=== PATIENT | male | born 1980 | race Caucasian/White ===

== ENCOUNTER 2021-02-07 08:15 | Observation (INO) | payer BC ==
[2021-02-07] MEDS ORDERED: Sodium Chloride 0.9% 1000 ML 1,000 ML ONE (08:46)
[2021-02-07] MEDS ORDERED: Sodium Chloride 0.9% 1000 ML 1,000 ML IV STA ×2 (08:49→08:55)
[2021-02-07] MEDS ORDERED: Zofran 4 MG/2 ML VIAL IV ONE (08:49)
--- NOTE | 2021-02-07 09:28 | ERPHSYRPT ---
- History of Present Illness Time Seen by Provider: 02/07/21 08:25 Source: patient Exam Limitations: no limitations Patient Subjective Stated Complaint: Pt states that he got up off of the toilet and passed out Triage Nursing Assessment: Pt was brought to the ER by his , hypoxic, oxygen has dropped from 95 initically to 88 since arrival, placed on 2L NC, headache, body aches, diarrhea, loss of taste and smell, pulses normal, diaphoretic, sinus rhythm Physician History: Patient is a 40-year-old male who was diagnosed with Covid on Tuesday he has been experiencing severe headaches body aches severe diarrhea and a decrease in taste and smell as well as cough and shortness of breath. Today he got up and went to the bathroom for a bowel movement and when he stood back up had a syncopal episode. Urine output has decreased. He denies any injury to his head with his syncope. He has had some shortness of breath and does display some hypoxia in the ER. Witnessed: by family Prior Episodes: single episode today Precipitating Factors: lightheadedness Context: standing Loss of Consciousness: brief (seconds) Allergies/Adverse Reactions: No Known Drug Allergies Allergy (Verified 02/07/21 08:51) Home Medications: No Reportable Medications [No Reported Medications] 02/07/21 [History] Travel Risk - International Travel Have you traveled outside of the country in past 3 weeks: No - Coronavirus Screening Symptoms: Fever, Cough: New Onset, Shortness of Breath, Vomiting/Diarrhea, Loss of Taste or Smell, Headaches/Body Aches/Fatigue Close contact with a COVID-19 positive Pt in past 14-21 Days: No - Vaccine Status Have you recieved a Covid-19 vaccination: No - Past Medical History Pertinent Past Medical History: No - Past Surgical History Past Surgical History: Yes Other Surgical History: toe surgery due to accident - Social History Smoking Status: Never smoker Exposure to second hand smoke: No Drug Use: none - Review of Systems Constitutional: Fever, Fatigue, Lethargy, Weakness, Weight Loss Eyes: No Symptoms Respiratory: Cough, Dyspnea, Dyspnea on Exertion (MILLER) Cardiac: No Symptoms Abdominal/Gastrointestinal: Abdominal Pain, Nausea, Vomiting, Diarrhea Musculoskeletal: Arthralgias, Back Pain, Joint Pain, Myalgias Skin: No Symptoms Neurological: Dizziness, Headache Psychological: No Symptoms Endocrine: No Symptoms Hematologic/Lymphatic: No Symptoms Immunological/Allergic: No Symptoms All Other Systems: Reviewed and Negative Physical Exam - Nursing Vital Signs Nursing Vital Signs: Initial Vital Signs Temperature 99.7 F 02/07/21 08:19 Pulse Rate 91 H 02/07/21 08:19 Respiratory Rate 21 02/07/21 08:19 Blood Pressure 146/108 02/07/21 08:19 O2 Sat by Pulse Oximetry 93 L 02/07/21 08:19 Pain Scale Pain Intensity 0 - Weinert Coma Scale Best Eye Response (Rangel): (4) open spontaneously Best Verbal Response (Weinert): (5) oriented Best Motor Response (Rangel): (6) obeys commands Weinert Total: 15 - Physical Exam General Appearance: no apparent distress, alert Eye Exam: bilateral eye: PERRL, EOMI Ears, Nose, Throat Exam: normal ENT inspection, pharynx normal, moist mucous membranes Neck Exam: normal inspection, non-tender, supple, full range of motion Respiratory: lungs clear, respiratory distress (Mild), diminished breath sounds, crackles/rales, No chest tenderness Cardiovascular: regular rate/rhythm, capillary refill <2 sec, No murmur, No pulse deficit Gastrointestinal: soft, normal bowel sounds, tenderness, No distention, No mass Back Exam: normal inspection, normal range of motion, No CVA tenderness, No vertebral tenderness Extremity Exam: normal inspection, normal range of motion, pelvis stable, No tenderness Mental Status: alert, oriented x 3, cooperative corrections corporal Exam: normal speech, PERRL, No facial droop Coordination/Gait: normal finger to nose Motor/Sensory: no motor deficit, no sensory deficit, no pronator drift Skin Exam: normal color, warm, dry, No rash SpO2: 93 - Course Nursing assessment & vital signs reviewed: Yes EKG Interpreted by Me: RATE (96), Sinus Rhythm, NORMAL AXIS, NORMAL INTERVALS, NORMAL QRS, Non-specific ST Changes - Radiology Exams Chest X-ray Interpretation: Interpreted by me, Other (Questionable faint infiltrate left lower lobe) Ordered Tests: Active Orders 24 hr Category Date Time 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 Care 02/07/21 08:53 Active EKG-ER Only STAT Care 02/07/21 08:49 Active IV Insertion STAT Care 02/07/21 08:49 Active Oxygen-ED Only Nasal Cannula 2 lpm Care 02/07/21 08:49 Active CHEST 1 VIEW (PORTABLE) Stat Exams 02/07/21 08:53 Taken CBC W DIFF Stat Lab 02/07/21 10:09 Completed CMP Stat Lab 02/07/21 10:09 Completed CULTURE,URINE Stat Lab 02/07/21 09:00 Received D-DIMER QUANTITATIVE Stat Lab 02/07/21 10:09 Completed INFLUENZA A+B RESHMA Stat Lab 02/07/21 10:09 Completed LDH-LACTATE DEHYDROGENASE Stat Lab 02/07/21 10:09 Completed Lactic Acid Stat Lab 02/07/21 08:49 Completed MAGNESIUM Stat Lab 02/07/21 10:09 Completed PROCALCITONIN Stat Lab 02/07/21 10:09 Completed PROTIME WITH INR Stat Lab 02/07/21 10:09 Completed TROPONIN Q3H Lab 02/07/21 10:09 Completed TROPONIN Q3H Lab 02/07/21 12:00 Ordered TROPONIN Q3H Lab 02/07/21 15:00 Ordered TROPONIN Q3H Lab 02/07/21 18:00 Ordered TROPONIN Q3H Lab 02/07/21 21:00 Ordered UA W/RFX UR CULTURE Stat Lab 02/07/21 09:00 Completed Medication Summary Discontinued Medications Generic Name Dose Route Start Last Admin Trade Name Freq PRN Reason Stop Dose Admin Sodium Chloride Confirm 02/07/21 08:46 Sodium Chloride 0.9% 1000 Ml Administered 02/07/21 08:47 Dose 1,000 mls @ ud .ROUTE .STK-MED ONE Sodium Chloride 1,000 mls @ 999 mls/hr 02/07/21 08:49 02/07/21 10:06 Sodium Chloride 0.9% 1000 Ml IV 02/07/21 09:49 Infused .Q1H1M STA Infusion Sodium Chloride 1,000 mls @ 999 mls/hr 02/07/21 08:55 Sodium Chloride 0.9% 1000 Ml IV 02/07/21 09:55 .Q1H1M STA Ondansetron HCl 4 mg 02/07/21 08:49 Zofran 4 Mg/2 Ml Vial IV 02/07/21 08:50 STAT ONE Lab/Rad Data: Laboratory Result Diagrams 02/07/21 10:09 02/07/21 10:09 Laboratory Results 02/07/21 02/07/21 02/07/21 Range/Units 10:09 10:09 10:09 WBC (4.0-10.5) K/mm3 RBC (4.1-5.6) M/mm3 Hgb (12.5-18.0) gm/dl Hct (42-50) % MCV (78-100) fl MCH (26-32) pg MCHC (32-36) g/dl RDW (11.5-14.0) % Plt Count (150-450) K/mm3 MPV (7.5-11.0) fl Gran % (36.0-66.0) % Eos # (Auto) (0-0.5) Absolute Lymphs (auto) (1.0-4.6) Absolute Monos (auto) (0.0-1.3) Lymphocytes % (24.0-44.0) % Monocytes % (0.0-12.0) % Eosinophils % (0.00-5.0) % Basophils % (0.0-0.4) % Absolute Granulocytes (1.4-6.9) Basophils # (0-0.4) PT 13.4 H (9.4-12.5) SECONDS INR 1.14 (0.8-3.0) D-Dimer 1206 H* (215-500) ng/mL Sodium 135 L (137-145) mmol/L Potassium 4.1 (3.5-5.1) mmol/L Chloride 96 L (98-107) mmol/L Carbon Dioxide 29 (22-30) mmol/L Anion Gap 14.3 (5-15) MEQ/L BUN 10 (9-20) mg/dL Creatinine 1.11 (0.66-1.25) mg/dL Estimated GFR > 60.0 ML/MIN Glucose 132 H (74-106) mg/dL Lactic Acid (0.4-2.0) Calcium 8.6 (8.4-10.2) mg/dL Magnesium 2.2 (1.6-2.3) mg/dL Total Bilirubin 0.20 (0.2-1.3) mg/dL AST 55 (17-59) U/L ALT 52 H (0-50) U/L Alkaline Phosphatase 56 (38-126) U/L Lactate Dehydrogenase 245 (120-246) U/L Troponin I < 0.012 (0.000-0.034) ng/mL Serum Total Protein 7.1 (6.3-8.2) g/dL Albumin 4.0 (3.5-5.0) g/dL Procalcitonin 0.086 H (0.030-0.080) ng/mL Urine Color (YELLOW) Urine Appearance (CLEAR) Urine pH (5-6) Ur Specific Mansfield (1.005-1.025) Urine Protein (Negative) Urine Ketones (NEGATIVE) Urine Blood (0-5) Cristopher/ul Urine Nitrite (NEGATIVE) Urine Bilirubin (NEGATIVE) Urine Urobilinogen (0-1) mg/dL Ur Leukocyte Esterase (NEGATIVE) Urine WBC (Auto) (0-5) /HPF Urine RBC (Auto) (0-2) /HPF U Epithel Cells (Auto) (FEW) /HPF Urine Bacteria (Auto) (NEGATIVE) /HPF Urine Culture Reflexed (NO) Urine Glucose (NEGATIVE) mg/dL Influenza Type A Ag (NEGATIVE) Influenza Type B Ag (NEGATIVE) 02/07/21 02/07/21 02/07/21 Range/Units 10:09 10:09 09:00 WBC 3.6 L (4.0-10.5) K/mm3 RBC 5.48 (4.1-5.6) M/mm3 Hgb 15.7 (12.5-18.0) gm/dl Hct 47.0 (42-50) % MCV 85.8 (78-100) fl MCH 28.6 (26-32) pg MCHC 33.4 (32-36) g/dl RDW 13.1 (11.5-14.0) % Plt Count 89 L (150-450) K/mm3 MPV 10.1 (7.5-11.0) fl Gran % 74.5 H (36.0-66.0) % Eos # (Auto) 0 (0-0.5) Absolute Lymphs (auto) 0.67 L (1.0-4.6) Absolute Monos (auto) 0.24 (0.0-1.3) Lymphocytes % 18.8 L (24.0-44.0) % Monocytes % 6.7 (0.0-12.0) % Eosinophils % 0.0 (0.00-5.0) % Basophils % 0.0 (0.0-0.4) % Absolute Granulocytes 2.66 (1.4-6.9) Basophils # 0 (0-0.4) PT (9.4-12.5) SECONDS INR (0.8-3.0) D-Dimer (215-500) ng/mL Sodium (137-145) mmol/L Potassium (3.5-5.1) mmol/L Chloride (98-107) mmol/L Carbon Dioxide (22-30) mmol/L Anion Gap (5-15) MEQ/L BUN (9-20) mg/dL Creatinine (0.66-1.25) mg/dL Estimated GFR ML/MIN Glucose (74-106) mg/dL Lactic Acid (0.4-2.0) Calcium (8.4-10.2) mg/dL Magnesium (1.6-2.3) mg/dL Total Bilirubin (0.2-1.3) mg/dL AST (17-59) U/L ALT (0-50) U/L Alkaline Phosphatase (38-126) U/L Lactate Dehydrogenase (120-246) U/L Troponin I (0.000-0.034) ng/mL Serum Total Protein (6.3-8.2) g/dL Albumin (3.5-5.0) g/dL Procalcitonin (0.030-0.080) ng/mL Urine Color YELLOW (YELLOW) Urine Appearance SLIGHTLY CLOUDY (CLEAR) Urine pH 6.0 (5-6) Ur Specific Mansfield 1.016 (1.005-1.025) Urine Protein 30 (Negative) Urine Ketones NEGATIVE (NEGATIVE) Urine Blood SMALL (0-5) Cristopher/ul Urine Nitrite NEGATIVE (NEGATIVE) Urine Bilirubin NEGATIVE (NEGATIVE) Urine Urobilinogen NEGATIVE (0-1) mg/dL Ur Leukocyte Esterase NEGATIVE (NEGATIVE) Urine WBC (Auto) 3-5 (0-5) /HPF Urine RBC (Auto) NONE (0-2) /HPF U Epithel Cells (Auto) NONE (FEW) /HPF Urine Bacteria (Auto) NONE (NEGATIVE) /HPF Urine Culture Reflexed YES (NO) Urine Glucose NEGATIVE (NEGATIVE) mg/dL Influenza Type A Ag NEGATIVE (NEGATIVE) Influenza Type B Ag NEGATIVE (NEGATIVE) 02/07/21 Range/Units 08:49 WBC (4.0-10.5) K/mm3 RBC (4.1-5.6) M/mm3 Hgb (12.5-18.0) gm/dl Hct (42-50) % MCV (78-100) fl MCH (26-32) pg MCHC (32-36) g/dl RDW (11.5-14.0) % Plt Count (150-450) K/mm3 MPV (7.5-11.0) fl Gran % (36.0-66.0) % Eos # (Auto) (0-0.5) Absolute Lymphs (auto) (1.0-4.6) Absolute Monos (auto) (0.0-1.3) Lymphocytes % (24.0-44.0) % Monocytes % (0.0-12.0) % Eosinophils % (0.00-5.0) % Basophils % (0.0-0.4) % Absolute Granulocytes (1.4-6.9) Basophils # (0-0.4) PT (9.4-12.5) SECONDS INR (0.8-3.0) D-Dimer (215-500) ng/mL Sodium (137-145) mmol/L Potassium (3.5-5.1) mmol/L Chloride (98-107) mmol/L Carbon Dioxide (22-30) mmol/L Anion Gap (5-15) MEQ/L BUN (9-20) mg/dL Creatinine (0.66-1.25) mg/dL Estimated GFR ML/MIN Glucose (74-106) mg/dL Lactic Acid 1.4 (0.4-2.0) Calcium (8.4-10.2) mg/dL Magnesium (1.6-2.3) mg/dL Total Bilirubin (0.2-1.3) mg/dL AST (17-59) U/L ALT (0-50) U/L Alkaline Phosphatase (38-126) U/L Lactate Dehydrogenase (120-246) U/L Troponin I (0.000-0.034) ng/mL Serum Total Protein (6.3-8.2) g/dL Albumin (3.5-5.0) g/dL Procalcitonin (0.030-0.080) ng/mL Urine Color (YELLOW) Urine Appearance (CLEAR) Urine pH (5-6) Ur Specific Mansfield (1.005-1.025) Urine Protein (Negative) Urine Ketones (NEGATIVE) Urine Blood (0-5) Cristopher/ul Urine Nitrite (NEGATIVE) Urine Bilirubin (NEGATIVE) Urine Urobilinogen (0-1) mg/dL Ur Leukocyte Esterase (NEGATIVE) Urine WBC (Auto) (0-5) /HPF Urine RBC (Auto) (0-2) /HPF U Epithel Cells (Auto) (FEW) /HPF Urine Bacteria (Auto) (NEGATIVE) /HPF Urine Culture Reflexed (NO) Urine Glucose (NEGATIVE) mg/dL Influenza Type A Ag (NEGATIVE) Influenza Type B Ag (NEGATIVE) - Progress Progress: unchanged - Departure Departure Disposition: In-patient Admission Clinical Impression: COVID-19, Dehydration Condition: Fair Critical Care Time: No Referrals: RAFA SAPP [Primary Care Provider] -
[2021-02-07 10:08] LABS: Absolute Neutrophil Ct (ANC) 2.66 (1.4-6.9); Basophil (Absolute #) 0 (0-0.4); Eosinophil (Absolute #) 0 (0-0.5); Hemoglobin 15.7 gm/dl (12.5-18.0); Lymphocyte (Absolute #) 0.67 (1.0-4.6); Lymphocytes % 18.8 % (24.0-44.0); Mean Cell Volume 85.8 fl (78-100); Mean Corpuscular Hemoglobin 28.6 pg (26-32); Mean Corpuscular Hgb Concent. 33.4 g/dl (32-36); Mean Platelet Volume 10.1 fl (7.5-11.0); Monocyte (Absolute #) 0.24 (0.0-1.3); Monocytes % 6.7 % (0.0-12.0); Neutrophil % 74.5 % (36.0-66.0); Platelet Count 89 K/mm3 (150-450); Red Blood Count 5.48 M/mm3 (4.1-5.6); Red Cell Distribution Width 13.1 % (11.5-14.0); White Blood Count 3.6 K/mm3 (4.0-10.5)
[2021-02-07 10:16] LABS: INR 1.14 (0.8-3.0); PROTIME 13.4 SECONDS (9.4-12.5)
[2021-02-07 10:17] LABS: Appearance SLIGHTLY CLOUDY (CLEAR); Bilirubin NEGATIVE (NEGATIVE); Blood SMALL Ery/ul (0-5); Glucose NEGATIVE (NEGATIVE); Ketones NEGATIVE (NEGATIVE); Leukocyte Esterase NEGATIVE (NEGATIVE); Nitrite NEGATIVE (NEGATIVE); Protein,Urine Dip 30 (Negative); Specific Gravity 1.016 (1.005-1.025); Urobilinogen NEGATIVE mg/dL (0-1)
[2021-02-07 10:38] LABS: ALKALINE PHOSPHATASE 56 U/L (38-126); ANION GAP 14.3 MEQ/L (5-15); BLOOD UREA NITROGEN 10 mg/dL (9-20); CHLORIDE 96 mmol/L (98-107); Calcium 8.6 mg/dL (8.4-10.2); Carbon Dioxide 29 mmol/L (22-30); Creatinine 1 1.11 mg/dL (0.66-1.25); EST GLOMERULAR FILTRATION RATE > 60.0 ML/MIN; Glucose 132 mg/dL (74-106); LDH-LACTATE DEHYDROGENASE 245 U/L (120-246); MAGNESIUM 2.2 mg/dL (1.6-2.3); PROCALCITONIN 0.086 ng/mL (0.030-0.080); Potassium 4.1 mmol/L (3.5-5.1); SGOT/AST 55 U/L (17-59); SGPT/ALT 52 U/L (0-50); SODIUM 135 mmol/L (137-145); Total Protein 7.1 g/dL (6.3-8.2)
[2021-02-07 10:42] LABS: INFLUENZA A NEGATIVE (NEGATIVE); INFLUENZA B NEGATIVE (NEGATIVE)
[2021-02-07 13:40] LABS: Slide Review 1 YES
[2021-02-07] MEDS ORDERED: Ativan 1 MG PO PRN (14:49)
[2021-02-07] MEDS ORDERED: TYLENOL 325 MG PO PRN (14:52)
[2021-02-07] MEDS ORDERED: NON-FORMULARY ITEM (Omeprazole [Omeprazole] 20 MG) PO PRN (14:52)
[2021-02-07] MEDS ORDERED: MOTRIN 400 MG PO PRN (14:53)
[2021-02-07] MEDS: TYLENOL EXTRA STRENGTH 500 MG PO PRN (14:53)
[2021-02-07] MEDS: Sodium Chloride 0.9% 1000 ML 1,000 ML IV SCH (14:54)
[2021-02-07] MEDS ORDERED: Protonix 40MG Tablet PO PRN (14:55)
[2021-02-07] MEDS: ENOXAPARIN SODIUM SQ SCH (16:41)
[2021-02-07] MEDS ORDERED: REMDESIVIR 200 MG in Sodium Chloride 0.9% 250 ML 250 ML IV ONE (17:00)
[2021-02-07] MEDS: Decadron 4 MG INJ IV SCH (18:45)
--- NOTE | 2021-02-07 19:08 | XRAY ---
Indication: Suspect Covid 19. Comparison: None Portable apical lordotic chest slightly underinflated and clear. Heart not enlarged. Bony thorax intact. Impression: Nonacute chest.
[2021-02-08] MEDS: Sodium Chloride 0.9% 1000 ML 1,000 ML IV SCH ×3 (02:32→21:31)
[2021-02-08] MEDS: Decadron 4 MG INJ IV SCH ×2 (06:47→17:47)
[2021-02-08 07:00] LABS: Absolute Neutrophil Ct (ANC) 2.39 (1.4-6.9); BASOPHIL % 0.3 % (0.0-0.4); Basophil (Absolute #) 0.01 (0-0.4); Eosinophil (Absolute #) 0 (0-0.5); Hematocrit 44.8 % (42-50); Hemoglobin 14.7 gm/dl (12.5-18.0); Lymphocytes % 25.2 % (24.0-44.0); Mean Cell Volume 86.5 fl (78-100); Mean Corpuscular Hemoglobin 28.4 pg (26-32); Mean Corpuscular Hgb Concent. 32.8 g/dl (32-36); Mean Platelet Volume 10.3 fl (7.5-11.0); Monocyte (Absolute #) 0.27 (0.0-1.3); Monocytes % 7.6 % (0.0-12.0); Neutrophil % 66.9 % (36.0-66.0); Platelet Count 87 K/mm3 (150-450); Red Blood Count 5.18 M/mm3 (4.1-5.6); White Blood Count 3.6 K/mm3 (4.0-10.5)
[2021-02-08 07:08] LABS: ALBUMIN 3.7 g/dL (3.5-5.0); ALKALINE PHOSPHATASE 49 U/L (38-126); BLOOD UREA NITROGEN 11 mg/dL (9-20); CHLORIDE 100 mmol/L (98-107); Calcium 8.2 mg/dL (8.4-10.2); Carbon Dioxide 29 mmol/L (22-30); Creatinine 1 0.87 mg/dL (0.66-1.25); EST GLOMERULAR FILTRATION RATE > 60.0 ML/MIN; Glucose 141 mg/dL (74-106); Potassium 4.5 mmol/L (3.5-5.1); SGOT/AST 49 U/L (17-59); SGPT/ALT 47 U/L (0-50); SODIUM 138 mmol/L (137-145); Total Protein 6.6 g/dL (6.3-8.2)
[2021-02-08] MEDS: TYLENOL EXTRA STRENGTH 500 MG PO PRN (10:20)
[2021-02-08 14:36] LABS: Slide Review 1 YES
[2021-02-08] MEDS ORDERED: REMDESIVIR 100 MG in Sodium Chloride 0.9% 100 ML BAG 100 ML IV SCH (15:00)
[2021-02-08] MEDS: ENOXAPARIN SODIUM SQ SCH (16:06)
[2021-02-09] MEDS: Decadron 4 MG INJ IV SCH (05:21)
[2021-02-09 06:17] LABS: INR 1.13 (0.8-3.0); PROTIME 13.3 SECONDS (9.4-12.5)
[2021-02-09 06:29] LABS: ALBUMIN 3.5 g/dL (3.5-5.0); ALKALINE PHOSPHATASE 44 U/L (38-126); BLOOD UREA NITROGEN 10 mg/dL (9-20); CHLORIDE 101 mmol/L (98-107); Calcium 8.1 mg/dL (8.4-10.2); Carbon Dioxide 26 mmol/L (22-30); Creatinine 1 0.81 mg/dL (0.66-1.25); EST GLOMERULAR FILTRATION RATE > 60.0 ML/MIN; Glucose 152 mg/dL (74-106); Hematocrit 42.8 % (42-50); Mean Cell Volume 87.3 fl (78-100); Mean Corpuscular Hemoglobin 28.6 pg (26-32); Mean Corpuscular Hgb Concent. 32.7 g/dl (32-36); Mean Platelet Volume 10.4 fl (7.5-11.0); Platelet Count 115 K/mm3 (150-450); Potassium 4.2 mmol/L (3.5-5.1); Red Cell Distribution Width 12.9 % (11.5-14.0); SGOT/AST 38 U/L (17-59); SGPT/ALT 39 U/L (0-50); SODIUM 135 mmol/L (137-145); Total Protein 6.2 g/dL (6.3-8.2); White Blood Count 4.8 K/mm3 (4.0-10.5)
[2021-02-09 08:00] VITALS: BP 120/88; O2SAT 94
[2021-02-09 10:39] VITALS: PULSE 82
--- NOTE | 2021-02-09 11:38 | HP ---
CHIEF COMPLAINT: Lightheadedness, passing out, fatigue, aching all over. No cough. HISTORY OF PRESENT ILLNESS: The patient is a 40 year-old white male who has been sick for about six days. Four days ago he tested positive for COVID. 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 No one in the family has it so far, he states. He was sitting on a toilet this morning and passed out. He was brought to the emergency room by his . His oxygen dropped from 95% down to 88% since his arrival. He said he aches all over, had some diarrhea, loss of taste and smell. He was diaphoretic at that time. Normally he is a very healthy gentleman. He has never passed out before. MEDICATIONS: None routinely. ALLERGIES: NKDA. REVIEW OF SYSTEMS: The patient had a fever up to 101F, fatigue, lethargy, weakness, a little bit of weight loss. Appetite down, cannot taste food. He had some diarrhea, vomiting and nausea. NEUROLOGIC: Diffuse headache, worse last night. SOCIAL HISTORY: He does not smoke, not a frequent drinker. . He works a virk at a [employer]. PHYSICAL EXAMINATION: GENERAL: The patient is alert, orientated, well-tanned, healthy looking man. VITAL SIGNS: Temperature 99.7F, pulse 102, respirations 20, blood pressure 100/60. O2 saturation on 2 liters is 93. HEENT: Pupils equal and reactive to light. NECK: Supple without adenopathy. CHEST: Clear. CVS: No murmurs or gallops. ABDOMEN: Slightly obese. No masses or organomegaly. EXTREMITIES: Normal. He states he has decreased feeling over his feet since he has had this. No rashes. LAB DATA AND TESTS: D-dimer positive at 1200 which is pretty markedly elevated. The troponins were negative. Electrolytes are normal. His creatinine is down to 3.6. White count was normal at 3.6, hemoglobin 15. IMPRESSION: The patient has COVID with elevated D-dimer secondary to COVID, hypotension secondary to COVID. He was slightly dehydrated. He is stable on 2 liters. He is on some IV fluids, start Remdesivir, Decadron and anticoagulate him. PROGNOSIS: Good.
== END 2021-02-09 11:37 | disposition home or self-care (01) ==
LOC: ED 08:15 → MED SURG 12:52 → INTOOBSV 12:52 → MED SURG 13:52
PROVIDERS: ADMIT Family Medicine; ATTEND Family Medicine
DX: U07.1 COVID-19 (principal); R42 Dizziness and giddiness; R19.7 Diarrhea, unspecified; R43.8 Other disturbances of smell and taste; R51.9 Headache, unspecified; I95.9 Hypotension, unspecified; E86.0 Dehydration; R79.89 Other specified abnormal findings of blood chemistry
CPT/HCPCS: 36415; 71045; 80053; 81001; 83605; 83615; 83735; 84145; 84484; 85025; 85027; 85379; 85610; 86140; 87086; 87400; 93005; 93041; 93268; 94762; 96360; 99285; J1100; J1650; A9270-GY; G0378